=== PATIENT | male | born 1960 | race Caucasian/White ===

== ENCOUNTER → 2024-11-17 | Outpatient (CLI) | payer MEDICARE ==
--- NOTE | 2024-11-17 11:18 | CT ---
EXAMINATION TYPE: CT chest wo con DATE OF EXAM: 11/17/2024 10:45 AM COMPARISON: Chest radiograph 11/14/2024. CLINICAL INDICATION: Male, 64 years old with history of J84.9 interstitial lung disease; PHH, Chronic cough, hx scheduler TECHNIQUE: Multiple axial images were obtained through the chest. Sagittal and coronal reformats were created for review. MIP was performed on a separate workstation. High resolution protocol performed. Contrast used: mL of (None if empty) Oral contrast used: (None if empty) CT DLP: 1570.80 mGycm, Automated exposure control for dose reduction was used. FINDINGS: LUNGS: Scattered mild reticulations throughout the lungs. There is no evidence of interstitial thicke aly, significant groundglass opacity, honeycombing or architectural distortion in the lungs. No sig nificant expiratory air trapping. No acute area of infiltrative or consolidative change. No clinicall y significant pulmonary nodules identified. Right upper lobe lateral calcified granuloma series 9 [address] ge 59. Subpleural nodule also present on image 44 which is 3 mm.r subpleural nodule right lower lobe measuring 3 mm series 9 image 151. LARGE AIRWAYS: Central airways are patent. No dynamic airway collapse on expiratory imaging. No bronc hiectasis. No bronchial wall thickening. PLEURA: No pleural effusion or thickening. HEART: Size within normal limits. Severe coronary artery calcifications present. MEDIASTINUM: No gross evidence of adenopathy. Small hiatal hernia. VASCULATURE: No aortic aneurysm. MUSCULOSKELETAL: No acute osseous abnormalities SOFT TISSUES/LYMPH NODES: Unremarkable. LOWER NECK: No significant findings. UPPER ABDOMEN: Gallstones layering in the gallbladder lumen. Low-attenuation to the liver parenchyma. IMPRESSION: 1. No evidence for interstitial lung disease. No evidence for pulmonary fibrosis. 2. No evidence for acute process. 3. Small hiatal hernia. 4. Severe coronary artery atherosclerosis. 5. Cholelithiasis. 6. Hepatic steatosis. [facility], , 11/17/2024 11:15 AM
== END | disposition home or self-care (01) ==
LOC: RADCTMAIN 10:15
PROVIDERS: ATTEND Internal Medicine Critical Care Medicine
DX: J84.9 Interstitial pulmonary disease, unspecified (principal); K44.9 Diaphragmatic hernia without obstruction or gangrene; I25.10 Atherosclerotic heart disease of native coronary artery without angina pectoris; K80.20 Calculus of gallbladder without cholecystitis without obstruction; K76.0 Fatty (change of) liver, not elsewhere classified
CPT/HCPCS: 71250